=== PATIENT | male | born 1980 | race Caucasian/White ===

== ENCOUNTER 2018-01-26 17:17 | Emergency (ER) | payer OTHER ==
[~2018-01-26] VITALS: Ht 167.6 cm; Wt 77.6 kg
[2018-01-26] MEDS ORDERED: MEPERIDINE HCL (50 MG/ML) 1 ML VIAL IV ONE (19:45)
[2018-01-26] MEDS ORDERED: MEPERIDINE HCL (50 MG/ML) 1 ML VIAL IM ONE (20:15)
[2018-01-26] MEDS ORDERED: cefTRIAXone 1GM/10ml IVPUSH 10 ML IV ONE (21:15)
[2018-01-26] MEDS ORDERED: CLINDAMYCIN 900MG IV 50 ML IV ONE (21:15)
[2018-01-26 21:33] LABS: Basophils # (auto) 0.1 uL; Basophils % (auto) 0.6 % (0.0-2.0); Eosinophils # (auto) 0.1 uL; Eosinophils % (auto) 0.4 % (0.0-7.0); Hematocrit 39.7 % (41.0-53.0); Hemoglobin 13.4 g/dL (13.5-17.5); Lymphocytes # (auto) 2.7 uL; Lymphocytes % (auto) 15.3 % (10.0-50.0); Mean Corpuscular Hemoglobin 30.5 pg (28.0-32.0); Mean Corpuscular Hgb Conc. 33.7 g/dL (32.0-36.0); Mean Corpuscular Volume 90.6 fL (80.0-100.0); Monocytes % (auto) 5.8 % (0.0-12.0); Neutrophils # (auto) 13.7 uL; Neutrophils % (auto) 77.9 % (37.0-80.0); Platelet Count (auto) 276 10^3/uL (140-450); Red Blood Cells 4.38 10^6/uL (4.5-5.90); Red Cell Distribution Width 14.3 % (11.8-14.3); White Blood Cell 17.6 10^3/uL (4.4-10.8)
[2018-01-26 21:48] LABS: Albumin 3.5 g/dL (3.4-5.0); BUN/Creatinine Ratio 20.2; Calcium 8.9 mg/dL (8.5-10.1); Potassium 3.3 mmol/L (3.5-5.1)
[2018-01-26 21:51] LABS: Bilirubin, Total 0.4 mg/dL (0.2-1.0); Total Protein 7.1 g/dL (6.4-8.2)
[2018-01-26 23:00] VITALS: BP 124/85
== END 2018-01-26 23:59 | disposition home or self-care (01) ==
LOC: ER 17:17
DX: N45.3 Epididymo-orchitis (principal); F17.210 Nicotine dependence, cigarettes, uncomplicated
CPT/HCPCS: 36415; 76870; 80053; 85025; 96365; 96372; 96375; 99285; J2175; J3490